=== PATIENT | male | born 1985 | race Hispanic/Latino ===

== ENCOUNTER 2024-11-18 16:53 | Emergency (ER) | payer BC ==
[~2024-11-18 16:53] MED LIST: Iopamidol-370 76% 500 ML MDV (1 ML CHARGE) ONE
[2024-11-18] MEDS ORDERED: fentaNYL 50 mcg/mL 1 mL Vial ONE (17:23)
[2024-11-18 17:30] LABS: #Basophils 0.09 10x3/uL (0.0-0.2); #Eosinophils 0.13 10x3/uL (0.0-0.7); #Monocytes 0.85 10x3/uL (0.11-0.59); #Neutrophils 3.88 10x3/uL (1.40-6.50); %Basophils 0.8 % (0.0-1.0); %Eosinophils 1.2 % (0.0-10.0); %Lymphocytes 53.3 % (21.0-51.0); %Neutrophils 36.5 % (42.0-75.0); Hematocrit 42.4 % (42.0-52.0); Hemoglobin 15.6 g/dL (14.0-18.0); Mean Corpuscular HGB CONC 36.8 g/dL (32.0-36.0); Mean Corpuscular Hemoglobin 30.9 pg (27.0-31.0); Mean Platelet Volume 10.4 fL (7.4-10.4); Platelet Count 193 10x3/uL (130-400); RBC Distribution Width 11.9 % (11.5-14.5); Red Blood Cell (RBC) Count 5.05 mill/uL (4.70-6.10); White Blood Cell (WBC) Count 10.65 10x3/uL (4.8-10.8)
[2024-11-18] MEDS ORDERED: Lidocaine 1% PF 5 ML VIAL ONE (17:37)
[2024-11-18 17:41] LABS: INR-International Normal Ratio 1.1; PTT 25.9 sec (22.9-36.1); Prothrombin Time 14.7 sec (12.0-14.7)
[2024-11-18 17:55] LABS: ALT (SGPT) 104 U/L (Less than 45); AST (SGOT) 57 U/L (11-34); Albumin 4.1 g/dL (3.1-4.5); Alkaline Phosphatase 87 U/L (40-110); Anion Gap 17 mmol/L (10-20); BUN (Urea Nitrogen) 14 mg/dL (8.9-20.6); Calc. Creatinine Clearance 0 mL/min (70-130); Calcium 8.7 mg/dL (7.8-10.44); Carbon Dioxide 20 mmol/L (22-29); Chloride 107 mmol/L (98-107); Estimated GFR 113; Globulin 2.9 g/dL (2.4-3.5); Glucose 87 mg/dL (70-105); Sodium 141 mmol/L (136-145)
[2024-11-18 17:56] LABS: Acetaminophen Less than 10 mcg/mL (Less than 10); Alcohol 172.8 mg/dL (Less than 10); Salicylate Less than 8.0 mg/dL (Less than 8.0)
== END 2024-11-18 21:25 | disposition home or self-care (01) ==
LOC: ERS 16:53
DX: S06.0X0A Concussion without loss of consciousness, initial encounter (principal); S02.2XXA Fracture of nasal bones, initial encounter for closed fracture; V86.56XA Driver of dirt bike or motor/cross bike injured in nontraffic accident, initial encounter; Y93.9 Activity, unspecified
CPT/HCPCS: 12011; 70450; 70486; 71045; 71260; 72125; 74177; 80053; 80307; 85025; 85610; 85730; 96374; G0390; J3010; Q9967